=== PATIENT | male | born 1960 | race Two or more races ===

== ENCOUNTER 2022-02-07 12:51 | Emergency (ER) | payer BC ==
[~2022-02-07] VITALS: Ht 180.3 cm; Wt 86.6 kg
[2022-02-07 14:10] VITALS: BP 114/72
== END 2022-02-07 15:01 | disposition home or self-care (01) ==
LOC: ER 12:51
DX: T23.201A Burn of second degree of right hand, unspecified site, initial encounter (principal); X08.8XXA Exposure to other specified smoke, fire and flames, initial encounter; Y93.89 Activity, other specified; Y92.89 Other specified places as the place of occurrence of the external cause; Y99.8 Other external cause status